=== PATIENT | female | born 1975 | race Hispanic/Latino ===

== ENCOUNTER 2016-12-13 13:22 | Emergency (ER) | payer SELFPAY ==
[~2016-12-13] VITALS: Ht 157.5 cm; Wt 80.3 kg
[~2016-12-13 13:22] MED LIST: BACTRIM,SEPT1 TABLET PO; Motrin PO; NOHOMEMEDS; Vicodin,Norco 5/325 PO; oxyCODONE PO
[2016-12-13 15:51] LABS: INFLUENZA A VIRAL ANTIGEN NEGATIVE; INFLUENZA B VIRAL ANTIGEN NEGATIVE
[2016-12-13 17:23] VITALS: BP 102/62
== END 2016-12-13 17:24 | disposition home or self-care (01) ==
LOC: EME 13:22
PROVIDERS: Physician Assistant
DX: H11.31 Conjunctival hemorrhage, right eye (principal); B34.9 Viral infection, unspecified; R11.0 Nausea; R05 Cough
CPT/HCPCS: 71020; 87502; 99281; 99284

== ENCOUNTER 2017-01-29 11:40 | Emergency (ER) | payer SELFPAY ==
[~2017-01-29] VITALS: Ht 152.4 cm; Wt 79.5 kg
[2017-01-29 12:56] LABS: HEMATOCRIT 43.6 % (36.0-46.0); MCH 28.9 PG (29.0-34.0); MCHC 32.6 G/DL (30.0-36.0); MCV 88.6 FL (83-99); MEAN PLAT.VOLUME 10.1 uM^3 (9.5-12.4); PLATELET COUNT 310 K/uL (156-360); RBC DIS.WIDTH-CV 12.4 % (11.8-14.6); RBC DIS.WIDTH-SD 40.3 % (39-53); RED BLOOD COUNT 4.92 M/uL (3.80-5.20); WHITE BLOOD COUNT 6.3 K/uL (4.1-10.2)
[2017-01-29 13:12] LABS: CHLORIDE 106 mEq/L (99-109); POTASSIUM 3.8 mEq/L (3.7-5.4); SODIUM 138 mEq/L (136-147)
[2017-01-29 13:14] LABS: GLUCOSE 90 mg/dL (70-99)
[2017-01-29 13:16] LABS: ANION GAP 11 MEQ/L (2-14); TOTAL BILIRUBIN 0.5 mg/dL (0.0-1.0)
[2017-01-29 13:18] LABS: ALKALINE PHOSPHATASE 93 IU/L (3-129); GFR ESTIMATE (CALCULATED) > 59 mL/min/
[2017-01-29 13:19] LABS: UREA NITROGEN (BUN) 12 mg/dL (9-23)
[2017-01-29 13:22] LABS: ADD MIUA? YES; BILIRUBIN NEGATIVE; BLOOD LARGE; COLOR YELLOW ((YELLOW)); GLUCOSE (STRIP) NEGATIVE; KETONES 20; LEUKOCYTES SMALL; NITRITE NEGATIVE; PROTEIN (STRIP) 100; SPECIFIC GRAVITY 1.024 (1.000-1.030); UROBILINOGEN 0.2 MG/DL (0.2-1.0)
[2017-01-29 13:30] LABS: QUANTITATIVE HCG < 4.0 MIU/ML
[2017-01-29 13:48] LABS: BACTERIA RARE /HPF; EPITHELIAL CELLS 2+ /HPF; MUCUS 3+ /LPF; UCUL ADDED? NO
[2017-01-29 13:52] LABS: LIPASE 20 U/L (1.0-51.0)
[2017-01-29] MEDS ORDERED: ZOFRAN4 MG PO (15:00)
[2017-01-29] MEDS ORDERED: TRAMADOL HCL50 MG PO (15:00)
[2017-01-29 15:18] VITALS: BP 102/57
== END 2017-01-29 15:20 | disposition home or self-care (01) ==
LOC: EME 11:40 → RME 11:40
DX: R11.2 Nausea with vomiting, unspecified (principal); R19.7 Diarrhea, unspecified
CPT/HCPCS: 74020; 80053; 81003; 83690; 84702; 85027; 99281; 99284